=== PATIENT | male | born 1980 | race Caucasian/White ===

== ENCOUNTER 2020-12-20 03:53 | Outpatient (CLI) | payer BC, SELFPAY ==
--- NOTE | 2020-12-20 07:15 | DI.RAD_ITS ---
Exam(s) XR LUMBAR SPINE COMPLETE EXAM: XR LUMBAR SPINE COMPLETE CLINICAL HISTORY: back pain,M54.9 TECHNIQUE: COMPARISON: No exams were available for comparison FINDINGS: Five views were obtained. There is loss of disc height at L5-S1. Otherwise the intervertebral disc spaces are well maintained. No compression fracture identified. No evidence of spondylolysis or spo ndylolisthesis. There are mild hypertrophic changes of the facets in the lower lumbar region. No other significant b josie abnormality seen. SI joints appear well preserved. IMPRESSION: Loss of disc height at L5-S1, consistent with disc degeneration. Slight facet hypertrophic degenerat torrey changes noted as well. RADIATION DOSE DELIVERED: Total DLP
== END 2020-12-20 04:13 ==
PROVIDERS: Visit Provider Physician Assistant
DX: M54.9 Dorsalgia, unspecified (principal); M51.37 Other intervertebral disc degeneration, lumbosacral region
CPT/HCPCS: 72110